=== PATIENT | female | born 1975 | race Two or more races ===

== ENCOUNTER 2024-06-20 22:50 | Emergency (ER) | payer MEDICAID, SELFPAY ==
[2024-06-20 23:29] VITALS: BP 115/76; PULSE 99; RESP 20; TEMP 36.8; O2SAT 98; BMI 32.1
[2024-06-21 00:04] LABS: MANUAL DIFF FLAG NO
[2024-06-21 00:07] LABS: Basophils Percent Auto 0.3 % (0-2); Eosinophils Absolute Auto 0.2 X10*3/uL (0.0-0.4); Hematocrit 34.5 % (37.0-47.0); Hemoglobin 11.5 g/dl (12.0-16.0); Imm Gran Abs Auto 0.02 X10*3/uL (0.00-0.03); Imm Gran Pct Auto 0.3 % (0.0-0.4); Lymphocytes Absolute Auto 2.3 X10*3/uL (1.2-4.9); Lymphocytes Percent Auto 33.2 % (20-40); Mean Corpuscular HGB Conc 33.3 g/dl (31.0-35.0); Mean Corpuscular Hemoglobin 27.2 pg (27.0-33.0); Mean Corpuscular Volume 81.6 fL (80.0-98.0); Mean Platelet Volume 8.6 fL (9.4-12.3); Monocytes Absolute Auto 0.7 X10*3/uL (0.1-1.2); Monocytes Percent Auto 10.6 % (2-11); Neutrophils Absolute Auto 3.7 x10*3/uL (2.0-8.3); Neutrophils Percent Auto 52.6 % (45-73); Platelet Count 296 X10*3/uL (160-400); Red Blood Count 4.23 X10*6/uL (4.20-5.50); Red Cell Distribution Width 13.9 % (11.0-16.0)
[2024-06-21 00:20] LABS: Alanine Aminotransferase 44 U/L (0-31); Albumin Level 4.2 g/dL (3.5-5.0); Alkaline Phosphatase 85 U/L (39-117); Anion Gap 13 (12-20); Aspartate Amino Transferase 40 U/L (5-31); Bilirubin Total 0.4 mg/dL (0.0-1.0); Blood Urea Nitrogen 14 mg/dL (9-16); Calcium 8.7 mg/dL (8.4-10.2); Carbon Dioxide 23 mmol/L (22-29); Chloride 107 mmol/L (96-108); Creatinine Clr Calc Pharmacy 93.1; Estimated Glomerular Filt Rate > 60; Glucose Random 115 mg/dL (60-115); Potassium 4.1 mmol/L (3.3-5.1); Sodium 139 mmol/L (135-145); Total Protein 7.1 g/dL (6.5-8.0)
[2024-06-21 00:44] LABS: Influenza A PCR POSITIVE (Negative); Influenza B PCR NEGATIVE (Negative); Resp Syncy Virus RNA Qual PCR NEGATIVE (Negative); SARS COV2 PCR INHOUSE NEGATIVE (Negative)
[2024-06-21 03:53] VITALS: BP 111/55; PULSE 91; RESP 18; TEMP 36.9; O2SAT 97
--- NOTE | 2024-06-21 04:16 | PC.NURSE ---
Pt a&ox4, no signs of distress. Pt reports has been bleeding for 20 days, thought it was going away but bleeding began again today and is very heavy. Pts family at bedside Plan of care ongoing.
--- OUTSIDE RECORDS SUMMARY | 2024-06-21 05:04 | XMS_ITS | Continuity of Care Document ---
Author Organization [facility] ter Address [address] [place] [id number]- Care Team Providers Care Director Of Student Financial Services Name Role Phone Not on Staff, PCP Primary Care Physician Unavail able [place] [facility] [place]31/24 - 05/31/[address] [address] Discharge Disposition: A-D/C Home Attending Physician: Mikey BRUNO [OB], Rosa Timmons Admitting Physician: Mikey BRUNO [OB]Rosa Referring Physician: Mikey BRUNO [OB]Rosa Encounter Type: One Time OP Allergies, Adverse Reactions, Alerts No Known Allergies Medications acetaminophen 325 mg oral capsule 2 capsule = 650 mg, By Mouth, Every 6 hours, PRN as needed for fever, # 90 capsule, 0 Refills, Maintenance, 05/29/24 4:02:00 AM EST, Capsule, [facility]/pharmacy #[id number], Partial fill upon patient request if the prescription is for a schedule II opioid drug. Start Date: 05/29/24 Status: Ordered Quantity: 90.0 Unit: capsule Repeat number: 1 Prenatabs Rx oral tablet 1 tablet, By Mouth, Daily, # 90 tablet, 3 Refills, Maintenance, 05/31/24 4:20:00 PM EST, Tablet, [facility][id number], Partial fill upon patient request if the prescription is for a schedule II opioid drug., 1 tablet By Mouth Daily, 74.6, kg, 05/31/24 11:36:00 EST, Dry Weight Start Date: 05/31/24 Status: Ordered Quantity: 90.0 Unit: tablet Repeat number: 4 Vital Signs Most recent to oldest [Reference Range]: 1 2 3 Oxygen Saturation [94-100 %] 99 % (05/31/24 12:22 PM) 99 % (05/31/24 11:36 AM) Pulse Rate [55-90 bpm] 73 bpm (05/31/24 11:36 AM) Blood Pressure [90-138/55-84 mm Hg] 112/51mm Hg (05/31/24 11:36 AM) Respiratory Rate [16-30 br/min] 20 br/min (05/31/24 12:22 PM) 20 br/min (05/31/24 11:40 AM) 17 br/min (05/31/24 11:36 AM) Temperature [96.8-100.4 DegF] 98.2 DegF (05/31/24 11:36 AM) Mode of Delivery (Oxygen) Room air (05/31/24 12:22 PM) Blood pressure sites Arm, right (05/31/24 11:36 AM) Temperature Route Oral (05/31/24 11:36 AM) Dry Weight 74.6 kg (05/31/24 11:36 AM) Dry Weight Obtained Via Standing scale (05/31/24 11:36 AM) Social History Social History Type Response Smoking Status Never (less than 100 in lifetime) entered on: 09/06/21 Sex Sex Representation Female (finding) Note * Benjamin Vazquez RN: PERFORM Event Display: Discharge/Transfer Note Hospital Authored Date: [id number] Nursing Discharge Note Entered On: 05/31/2024 15:31 EST Performed On: 05/31/2024 15:31 EST by Benjamin Vazquez RN Nursing Discharge Note 2 Discharge Time : 05/31/2024 15:31 EST Discharge Level of Care at Discharge : Home/Fci/Foster Care Patient Left Unit Via : Ambulatory Patient Accompanied Off Unit with : Other: self DC Instructions Provided & Signed by Pt : Yes Patient Understands D/C Instructions : Yes Patient Instructions Discharge Signed : Yes Did Pt have Specialty Bed or Wound Vac : No Benjamin Vazquez RN - 05/31/2024 15:31 EST * Benjamin Vazquez RN: PERFORM Event Display: Patient Education/Instruction Authored Date: [id number] Inpatient Adult Discharge Instructions. [address] [id number] Name: ADELAIDE AELJO : 1975?? Visit: 05/31/2024 11:29?? Current Date: 05/31/2024 14:10 ?? Account: [id number]?? Inpatient Adult Discharge Instructions We would like to thank you for allowing us to assist you with your healthcare needs. The following includes patient education materials and information regarding your injury/illness. Our entire staffstrives to provide an excellent experience for our patients and their families. PLEASE ENSURE YOU FOLLOW-UP PER THE INSTRUCTIONS BELOW! ?? YOUR OPINION IS IMPORTANT TO US! Please complete the survey you may receive by mail or email. Your feedback will be used to make improvements to the healthcare experiences of our patients and their families. Surveys are administered by [employer]. ?? If further treatment with your primary care physician or another doctor is recommended, it is important for you to keep the appointment. Call your primary care physician or return to the Emergency Department immediately if your condition worsens, fails to improve, or new symptoms develop. If you need to find a doctor, you can call [facility] [employer] Link for a referral at [phone] or toll free at [phone]) or log in to [email or web address].. ?? [facility], in keeping with [facility] guidance, no longer requires face masks for staff, patientsor visitors in most situations. Similiar to time spent indoors at other locations, there is the chance that you were exposed to repiratory viruses during your time with us (such as flu or COVID-19). If you develop symptoms concerning for a viral respiratory infection, please seek testing (and treatment if indicated) from your medical provider or home test kit. ?? You can view and manage your care through the patient portal or by using a health care delmy of your choosing. Beeline is a website that allows you to securely view your medical information including your hospital discharge summary, office visit summaries, medications and follow-up visits. You can also request appointments, renew medications, and request access to your medical information using a health care delmy of your choosing, or just ask a question. You can enroll at [email or web address] or register during your next office visit. You have been discharged from [facility], Patient Care Unit: [id number]??. If you have any questions regarding these instructions, including results of studies pending, afteryou leave, please call us and we will be happy to assist you 12/01. [facility] Your Care Team Attending Physician Mikey BRUNO [OB], Rosa Timmons?? Consulting Providers Mikey BRUNO [OB], Rosa Timmons?? Tests Performed Below is a partial list of the tests performed during your hospitalization. You may have had other tests and procedures not included in this list. Please discuss all test results with your provider. HCG Plus Beta (Females and Males) HCG Plus Beta (Females and Males)?? Primary Care Provider Not on Staff, PCP?? Advance Directive Health Care Proxy on File No Discharge Vitals Temperature: 98.2 DegF Pulse Rate: 73 bpm Respiratory Rate: 20 br/min Systolic Blood Pressure: 112 mm Hg Diastolic Blood Pressure:??51 mm Hg??Low Oxygen Saturation: 99 % Studies Pending All studies ordered during this hospital stay have been completed unless listed below. Please discuss all pending results with your provider listed above in these instructions. ?? No incomplete studies found?? What to do next Instructions From Your Doctor ?? Orders?? You Need to Schedule the Following Appointments Follow Up with??Peggy Flaherty DO Why: Please keep all scheduled appt??with your [facility] Provider and continue with blood draws (HCG Levels) as discussed. Imani call with any additional questions or concerns. Where: [address] [place] [address] [place] [address]- Discharge Medications ADELAIDE ALEJO :1975 Visit Date:05/31/2024 Medications: Please continue your medications until treatment is completed or stopped by your provider. Medications not listed below should be discontinued. Discuss any questions related to medications with your provider. What How Much When Instructions Next Dose Unchanged Acetaminophen (acetaminophen 325 mg oral capsule) 2 capsule Oral Every 6 hours as needed for as needed for fever Prescription Given During Visit No new medications prescribed at time of discharge.?? Laboratory Results Below is a partial list of the most recent Laboratory test results done prior to this discharge. You may have had other tests and procedures not included in this list. Please discuss all test resultswith your provider. HCG Plus Beta (Females and Males) (05/31/2024) ? ?BHCG (HCG & Beta) - 492 mIU/mL You will be contacted within 72 hours with your results. Allergies (NKA means No Known Allergies) NKA Problems No qualifying data available Education Materials Below is the list of Educational Leaflet Providered with your Discharge Instructions. WebMD Ignite Patient Education - HCG (Blood)?? WebMD Ignite Patient Education - HCG (Blood)?? WebMD Ignite Patient Education - Discharge Instructions for Miscarriage?? WebMD Ignite Patient Education - Possible Miscarriage (Threatened )?? Valuables and Belongings I fully understand and agree that [facility] accepts no responsibility for all my personal property including clothing, toilet articles, radios, jewelry, dentures, hearing aids, rings, money, or any other property that is in my possession or is brought to me after admission. I understand certain valuables may be placed in a hospital safe for a short period of time. I understand that the hospital is not liable for loss or damage due to accident, fire, or other natural occurrence while said property is in the safe. I accept full responsibility for any personal property that I keep with me, and will not hold the hospital responsible in case of loss or disappearance. I acknowledge that i have been encouraged to send valuables and belongings home. ? Other Discharge Information ? Pulmonary Rehab Status?? Pulmonary Rehab Discharge Status?? Respiratory Rate: 20 br/min ? Common Emergency Awareness Tips IS IT A STROKE? Act FAST and Check for these signs: FACE Does the face look uneven? ARM Does one arm drift down? SPEECH Does their speech sound strange? TIME Call at any sign of stroke ?? Heart Attack Signs Chest discomfort: Most heart attacks involve discomfort in the center of the chest and lasts more than a few minutes, or goes away and comes back. It can feel like uncomfortable pressure, squeezing, fullness or pain. Discomfort in upper body: Symptoms can include pain or discomfort in one or both arms, back, neck, jaw or stomach. Shortness of breath: With or without discomfort. Other signs: Breaking out in a cold sweat, nausea, or lightheaded. Remember, MINUTES DO MATTER. If you experience any of these heart attack warning signs, call to get immediate medical attention! ?? Smoking can increase your chances of developing chronic health problems and can cause harmful effects to other family members in your house. If you smoke, you are strongly encouraged to quit. Please call [facility] Link at [phone] or [phone] ([phone]) or log in to [email or web address] for referrals to smoking cessation programs. ?? 275 Suicide & Crisis Lifeline is available 12/01 if you or someone you know needs to find a reason to keep living. By calling 648 you'll be connected to a skilled, trained counselor at a crisis center in your area. INPATIENT DISCHARGE INSTRUCTIONS SIGNATURE PAGE ADELAIDE ALEJO Location:[facility] Registration Date and Time:05/31/2024 11:29 EST Primary Care Physician: Not on Staff, PCP Attending Physician: Mikey BRUNO [OB], Rosa Timmons, I ADELAIDE ALEJO, have received the above patient education materials/instructions and have verbalized understanding. If ambulance or transport services are being used I further acknowledge being given a choice of service. ?? If you need to contact me, please call me at this number: . Patient/Blending Machine Feeder Name: Patient/Blending Machine Feeder Signature: Relationship to Patient: Witness Name/Signature: Date: * Benjamin Vazquez RN: PERFORM Event Display: Patient Education Leaflets Authored Date: [id number] Ectopic ?? [id number] Embarazo ect??shine Cuando stephania tomas queda embarazada, el ??vulo fecundado (??vulo) se implanta en el interior del ??tero (matriz), donde crece. Melissa, en algunos casos, el ??vulo puede implantarse fuera del ??tero, con mayor frecuencia en la trompa de Falopio. Exeter se llama embarazo ect??shine. Tambi??n es conocido chinmay embarazo tub??rico. Melissa el ??vulo tambi??n puede implantarse en otros lugares, chinmay, por ejemplo,en el ovario, el payton uterino o el vientre (abdomen). Un embarazo ect??shine en estos sitios es poco frecuente. Doni el embarazo, el ??vulo fecundado crece en el ??tero. Melissa en un embarazo ect??shine, el ??vulo que crece en la trompa de Falopio puede hacer que la trompa estalle (se rompa). Exeter puede provocar un sangrado grave si no se detecta temprano y no se trata. ??Cu??les son las causas del embarazo ect??shine? En general, hay un problema con la trompa de Falopio que impide el paso del ??vulo hacia el ??tero.Exeter podr??a deberse a stephania lesi??n en el tubo, chinmay stephania infecci??n o cirug??a. Las posibilidades deuna tomas de tener un embarazo ect??shine pueden aumentar si baxter tenido: ??? un embarazo ect??shine en el pasado; ??? infecciones p??lvicas recurrentes; ??? endometriosis; ??? problemas para quedar embarazada (infertilidad); ??? cirug??a de las trompas; ??? un embarazo doni el uso de algunas p??ldoras anticonceptivas o un dispositivo intrauterino (DIU). Stephania tomas tambi??n puede tener un riesgo mayor si: ??? fuma; ??? tiene m??s de 35??a??os; ??? utiliza espr??is vaginales regularmente. ?Cu??les son los s??ntomas de un embarazo ect??shine? Los s??ntomas de un embarazo ect??shine ocurren con mayor frecuencia doni las primeras 12??semanas de embarazo (primer trimestre). Stephania tomas puede tener s??ntomas de embarazo temprano, chinmay un per??odo menstrual perdido. Veronica senos pueden estar sensibles. Es posible que orine con frecuencia y que sienta malestar estomacal (n??useas). Melissa, en algunos casos, puede no tener joe??n s??ntoma. Si stephania tomas tiene s??ntomas, es com??n el sangrado de la vagina al principio del embarazo. Tambi??n puede sentir dolor en la pelvis o la parte baja de la espalda. El dolor puede aparecer r??pida o lentamente, y puede ser leve o intenso. Puede ser sordo o khris, y puede ir y venir o durar un tiempo. A medida que un embarazo ect??shine avanza, los s??ntomas pueden aumentar. Si la trompa estalla, unamujer puede tener: ??? dolor intenso y repentino en el abdomen o la pelvis que no desaparece; ??? dolor que va hasta el hombro; ??? debilidad o desmayos. Si la trompa estalla debido al embarazo ect??shine, puede provocar stephania hemorragia interna grave que puede suponer stephania amenaza para la baron de la tomas. Se necesita un tratamiento inmediato. ?Cu??l es el tratamiento para un embarazo ect??shine? Un embarazo ect??shine puede tratarse de varias maneras. El tratamiento puede incluir lo siguiente: ??? Medicamentos. Se puede aplicar la inyecci??n de stephania o m??s dosis de medicamento para detener elcrecimiento de los ??vulos fecundados. As??, el cuerpo absorbe estas c??lulas. Los niveles hormonales tambi??n se analizan en momentos espec??ficos. Esta prueba se utiliza para asegurarse de que los niveles hormonales hayan vuelto a la normalidad. ??? Cirug??a. Se realiza stephania cirug??a para extirparla parte de la trompa donde se encuentra el embarazo ect??shine o toda la trompa. ??? Espera en observaci??n. Emelina tratamiento se utiliza solo para un ashley radha??o de mujeres con un riesgo muy bajo de ruptura. Consiste en un control minucioso de los s??ntomas, pruebas de nivel hormonal y ecograf??as para controlar el estado de daija de la tomas. Si stephania tomas muestra signos de que el embarazo ect??shine podr??a estallar o tiene signos de que la trompa baxter estallado, se realiza stephania cirug??a inmediatamente. ? [id number] [employer]omin[employer]. All rights reserved. This information is not intended as a substitute for professional medical care. Always follow your healthcare professional's instructions. ?? * George TALAVERA, Benjamin: PERFORM Event Display: Patient Education Leaflets Authored Date: [id number] Ectopic ?? [id number] Embarazo ect??shine Cuando stephania tomas queda embarazada, el ??vulo fecundado (??vulo) se implanta en el interior del ??tero (matriz), donde crece. Melissa, en algunos casos, el ??vulo puede implantarse fuera del ??tero, con mayor frecuencia en la trompa de Falopio. Exeter se llama embarazo ect??shine. Tambi??n es conocido chinmay embarazo tub??rico. Melissa el ??vulo tambi??n puede implantarse en otros lugares, chinmay, por ejemplo,en el ovario, el payton uterino o el vientre (abdomen). Un embarazo ect??shine en estos sitios es poco frecuente. Doni el embarazo, el ??vulo fecundado crece en el ??tero. Melissa en un embarazo ect??shine, el ??vulo que crece en la trompa de Falopio puede hacer que la trompa estalle (se rompa). Exeter puede provocar un sangrado grave si no se detecta temprano y no se trata. ??Cu??les son las causas del embarazo ect??shine? En general, hay un problema con la trompa de Falopio que impide el paso del ??vulo hacia el ??tero.Exeter podr??a deberse a stephania lesi??n en el tubo, chinmay stephania infecci??n o cirug??a. Las posibilidades deuna tomas de tener un embarazo ect??shine pueden aumentar si baxter tenido: ??? un embarazo ect??shine en el pasado; ??? infecciones p??lvicas recurrentes; ??? endometriosis; ??? problemas para quedar embarazada (infertilidad); ??? cirug??a de las trompas; ??? un embarazo doni el uso de algunas p??ldoras anticonceptivas o un dispositivo intrauterino (DIU). Stephania tomas tambi??n puede tener un riesgo mayor si: ??? fuma; ??? tiene m??s de 35??a??os; ??? utiliza espr??is vaginales regularmente. ?Cu??les son los s??ntomas de un embarazo ect??shine? Los s??ntomas de un embarazo ect??shine ocurren con mayor frecuencia doni las primeras 12??semanas de embarazo (primer trimestre). Stephania tomas puede tener s??ntomas de embarazo temprano, chinmay un per??odo menstrual perdido. Veronica senos pueden estar sensibles. Es posible que orine con frecuencia y que sienta malestar estomacal (n??useas). Melissa, en algunos casos, puede no tener joe??n s??ntoma. Si stephania tomas tiene s??ntomas, es com??n el sangrado de la vagina al principio del embarazo. Tambi??n puede sentir dolor en la pelvis o la parte baja de la espalda. El dolor puede aparecer r??pida o lentamente, y puede ser leve o intenso. Puede ser sordo o khris, y puede ir y venir o durar un tiempo. A medida que un embarazo ect??shine avanza, los s??ntomas pueden aumentar. Si la trompa estalla, unamujer puede tener: ??? dolor intenso y repentino en el abdomen o la pelvis que no desaparece; ??? dolor que va hasta el hombro; ??? debilidad o desmayos. Si la trompa estalla debido al embarazo ect??shine, puede provocar stephania hemorragia interna grave que puede suponer stephania amenaza para la baron de la tomas. Se necesita un tratamiento inmediato. ?Cu??l es el tratamiento para un embarazo ect??shine? Un embarazo ect??shine puede tratarse de varias maneras. El tratamiento puede incluir lo siguiente: ??? Medicamentos. Se puede aplicar la inyecci??n de stephania o m??s dosis de medicamento para detener elcrecimiento de los ??vulos fecundados. As??, el cuerpo absorbe estas c??lulas. Los niveles hormonales tambi??n se analizan en momentos espec??ficos. Esta prueba se utiliza para asegurarse de que los niveles hormonales hayan vuelto a la normalidad. ??? Cirug??a. Se realiza stephania cirug??a para extirparla parte de la trompa donde se encuentra el embarazo ect??shine o toda la trompa. ??? Espera en observaci??n. Emelina tratamiento se utiliza solo para un ashley radha??o de mujeres con un riesgo muy bajo de ruptura. Consiste en un control minucioso de los s??ntomas, pruebas de nivel hormonal y ecograf??as para controlar el estado de daija de la tomas. Si stephania tomas muestra signos de que el embarazo ect??shine podr??a estallar o tiene signos de que la trompa baxter estallado, se realiza stephania cirug??a inmediatamente. ? [id number] [employer]omin[employer]. All rights reserved. This information is not intended as a substitute for professional medical care. Always follow your healthcare professional's instructions. ?? * George TALAVERA, Benjamin: PERFORM Event Display: Patient Education Leaflets Authored Date: [id number] HCG (Blood) ?? hcg_serum_ES HCG (en sd) ??Esta prueba tiene otros nombres? Prueba de la hormona gonadotropina cori??amrita humana, prueba de embarazo en leonel, HCG cuantitativa ?De qu?? se trata esta prueba? La gonadotropina cori??amrita humana (HCG, por houston sigla en ingl??s) es un tipo de hormona. Esta prueba es un an??lisis que se utiliza para medir la cantidad de HCG que hay en la sd. Tanto los hombres chinmay las mujeres tienen radha??as cantidades de HCG en el cuerpo en todo momento.Cuando stephania tomas est?? embarazada, el cuerpo produce lucille m??s cantidad de HCG de lo normal. En unembarazo saludable, la cantidad de HCG en la sd aumenta mucho doni los primeros 3??meses. Esta prueba es el criterio de referencia para determinar si stephania tomas est?? embarazada. Permite detectar que est?? embarazada antes de que se pueda detectar un feto en stephania prueba de diagn??stico por im??genes, chinmay stephania ecograf??a. Con stephania ecograf??a se puede observar que est?? embarazada cuando la HCG aumenta a 1,000??UI/l o m??s. ?Por qu?? samuel hacerme esta prueba? Es posible que el proveedor de atenci??n m??dica se la recomiende para saber si est?? embarazada. Tambi??n es posible que se la pida si tiene sangrado vaginal o c??licos. Estos s??ntomas podr??an serindicio de un embarazo ect??shine o de que podr??a perder a houston beb?? por nacer. Tambi??n es posible que el proveedor de atenci??n m??dica quiera saber c??mo progresa houston embarazo doni algunos d??as, por lo que es posible que le pida que se major esta prueba 2??veces o m??s, con varios d??as de diferencia. ?Qu?? otras pruebas podr??an hacerme junto con esta? Si est?? embarazada, es probable que el proveedor de atenci??n m??dica tambi??n le pida stephania ecograf??a para evaluar la presencia de determinados problemas. Tambi??n es posible que se analice la sd para detectar la presencia de otras dos hormonas, el estradiol y la progesterona. Al analizar los niveles de estradiol, stephania forma de estr??johnson, se puede saber qu?? garcia faith est?? funcionando la placenta. El proveedor de atenci??n m??dica puede observar los niveles de progesterona, que tambi??n aumentan doni el embarazo, para descubrir si tiene riesgo de tener un aborto espont??domitila o un embarazo ect??shine. ?Qu?? significan los resultados de la prueba? Los resultados de la prueba pueden variar seg??n la edad, el g??breanne y la historia cl??amrita, entre otros factores. Los resultados pueden ser diferentes seg??n el laboratorio donde se major la prueba. Es posible que no signifiquen que tiene un problema. Para saber qu?? significan, hable con el proveedor de atenci??n m??dica. Los niveles normales de HCG en los hombres y en las mujeres premenop??usicas mariel??an entre 0.02 y 0.8??UI/l. En las primeras etapas del embarazo, los niveles de HCG pueden duplicarse en pocos d??as yalcanzar houston punto m??ximo, aproximadamente, a las 10??semanas. Despu??s de eso, los niveles pueden m antenerse estables o empezar a disminuir. Los niveles normales de HCG doni el embarazo pueden variar entre 20,000 y 200,000??UI/l. En ocasiones, la medici??n de los cambios en los niveles de HCG con el tiempo puede proporcionar informaci??n ??til. Si los niveles de HCG no cambian de acuerdo a lo esperado, es posible que esto signifique que podr??a giancarlo perdido el embarazo. ?C??mo se hace esta prueba? Para la prueba, se requiere stephania muestra de sd. Se utiliza stephania aguja para extraer sd de stephania vena del brazo o de la mano. ?Esta prueba implica alg??n riesgo? Narendra stephania muestra de sd con stephania aguja tiene ciertos riesgos. Estos incluyen sangrado, infecci??n, moretones o sensaci??n de mareo. Cuando le pinchen el brazo o la mano con la aguja, es posible que tenga stephania leve sensaci??n de escozor o dolor. Despu??s, la diane puede estar adolorida. ?Qu?? factores podr??an afectar los resultados de la prueba? Esta prueba es bastante confiable, melissa algunos factores pueden causar un positivo falso, por ejemplo los siguientes: ??? Determinados tumores que producen HCG ??? Medicamentos que contienen HCG, chinmay algunos que se usan en los tratamientos de fertilidad ??? La p??rdida reciente de un embarazo, porque los niveles de HCG pueden tardar 60??d??as en volver a la normalidad ?C??mo me preparo para esta prueba? No necesita prepararse para esta prueba. Aseg??rese de que el proveedor de atenci??n m??dica conozca todos los medicamentos, los medicamentos a base de hierbas, las vitaminas y los suplementos que usa. Estos incluyen los medicamentos que no necesitan receta y cualquier droga ilegal que pudiera estar consumiendo. ?? Last Reviewed Date: 2022 ?? [id number] The [employer]. Todos los derechos reservados. Esta informaci??n no pretende sustituir la atenci??n m??dica profesional. S??lo [place] m??dico puede diagnosticar y tratar un problema de daija. ?? Patient Care team information Care Team Personnel Name: Not on Staff, PCP Position: S Physician (General Medicine) Member Role: PCP Name: O'Mcwilliams RN, Jacolyn Position: [facility] OB RN Member Role: Patient Care Provider Care Team Related Persons Name: MALENA MARTINEZ Insurance Providers Guarantor name: MERRITT Health Plan Information #: 1 Payer: [employer] Member Number: [id number] Policy Number: NA Group Number: [id number] Health Plan Information #: 2 Payer: [employer] Member Number: [id number] Policy Number: NA Group Number: [id number]
--- OUTSIDE RECORDS SUMMARY | 2024-06-21 05:04 | XMS_ITS ---
Author Organization [facility] Address [address], [place] [id number] Care Team Providers Care El Teacher Name Role Phone No, PCP Primary Care Provider [facility] Unavailable [phone] Harshil Palmer Unavailable [phone] Results Component Value Reference Range Notes CBC Reviewed date:12/28/2023 10:39:40 AM Interpretation:Normal Performing Lab: Notes/Report: Original Ordering Provider: HARSHIL PALMER APRN Tamion, a member of [facility] [address] [place] [address] Cns - Gabby Jara MD WBC 8.9 4.8-10.8 x10-3/uL RBC 4.3 3.8-4.8 x10-6/uL HEMOGLOBIN 11.8 11.5-16.0 g/dL HEMATOCRIT 37.3 35-47 % MCV 86.9 79-98 fL MCH 27.5 27-32 pg MCHC 31.6 32-37 g/dL RDW 13.9 11-15 % PLT COUNT 395 130-400 x10-3/uL MEAN PLATELET VOLUME 9.2 7-11 fL NRBC % AUTO 0.0 <1 % NRBC # AUTO 0.00 <0.1 x10-3/uL COMPREHENSIVE METABOLIC PANE L Reviewed date:12/28/2023 10:39:31 AM Interpretation:Normal Performing Lab: Notes/Report: Original Ordering Provider: HARSHIL PALMER APRN GLUCOSE 95 70-100 mg/dL Reference range applicable to fasting specimens only BUN 11 5-25 mg/dL CREAT 0.51 0.5-1.1 mg/dL GLOMERULAR FILTRATION RATE 117 >60 This eGFR result was calculated using the CKD-EPI 2020 Creatinine Equation SODIUM 140 135-145 mEq/L POTASSIUM 4.4 3.5-5.5 mmol/L CHLORIDE 111 96-110 mmol/L CO2 26 21-32 mmol/L ANION GAP 3 3-11 CALCIUM 9.1 8.5-10.5 mg/dL TOTAL PROTEIN 7.1 6.0-8.0 G/dL ALBUMIN 3.9 3.2-5.0 G/dL BILI,TOTAL 0.5 0.0-1.4 mg/dL SGOT 28 10-42 U/L SGPT 40 10-60 U/L ALK PHOS 92 42-121 U/L GLYCOHEMOGLOBIN PROFILE Reviewed date:12/28/2023 10:39:19 AM Interpretation:Normal Performing Lab: Notes/Report: Original Ordering Provider: HARSHIL PALMER ASSISTANT PROFESSOR SURGICAL TECHNOLOGY [employer] [address] Cns - Gabby Jara MD GLYCATED HEMOGLOBIN A1C 5.3 <6.5 % ESTIMATED AVERAGE GLUCOSE 105 LIPID PROFILE Reviewed date:12/28/2023 11:34:46 AM Interpretation:Abnormal Performing Lab: Notes/Report: CHOLESTEROL 185 0-200 mg/dL TRIGLYCERIDES 166 0-150 mg/dL HDL CHOLESTEROL 55 >40 mg/dL LDL CALCULATED 97 0-100 mg/dL TC-HDLC RATIO 3.4 0-4.4 mg/dL MEASLES PROFILE Reviewed date:11/12/2023 10:51:16 AM Interpretation:Normal Performing Lab: Notes/Report: Original Ordering Provider: HARSHIL PALMER [employer], [place] [address] Cns - Gabby Jara MD MEASLES IGG QUAL POSITIVE POSITIVE MEASLES IGG QUANT 106.0 >=16.5 AU/mL >=16.5 AU/ mL is considered to be consistent with Immunity. TREPONEMAL AB Reviewed date:12/28/2023 10:39:59 AM Interpretation:Negative Performing Lab: Notes/Report: TREPONEMAL AB NEGATIVE NEGATIVE TSH CASCADE Reviewed date:12/28/2023 10:39:50 AM Interpretation:Normal Performing Lab: Notes/Report: TSH CASCADE 2.20 0.40-4.00 uIU/ml URINALYSIS Reviewed date:12/28/2023 10:33:33 PM Interpretation:Abnormal Performing Lab: Notes/Report: Original Ordering Provider: HARSHIL PALMER APRN Tamion, a member of [address] [address] Cns - Gabby Jara MD GLUCOSE, (UA) NEGATIVE NEGATIVE mg/dL BILIRUBIN, URINE NEGATIVE NEGATIVE KETONE, URINE NEGATIVE NEGATIVE mg/dL SPECIFIC GRAVITY, URINE 1.010 1.003-1.030 BLOOD, URINE TRACE NEGATIVE PH, URINE 7.5 5.0-8.0 PROTEIN, URINE NEGATIVE <= TRACE mg/dl UROBILINOGEN, URINE 0.2 0.2-1.0 E.U./dL NITRITE, URINE NEGATIVE NEGATIVE LEUKOCYTE ESTERASE, URINE NEGATIVE NEGATIVE RBC, URINE 5 0-4 /HPF WBC, URINE 2 0-4 /HPF EPITH CELLS, URINE 24 0-60 /LPF BACTERIA, URINE HEAVY NEGATIVE QUANTIFERON(R)-TB GOLD PLUS, 1 TUBE Reviewed date:11/13/2023 09:12:41 AM Interpretation:Negative Performing Lab:NL2, [facility] [id number] Rohan Hall Notes/Report: NON-FASTING QUANTIFERON(R)-TB GOLD PLUS, 1 TUBE NEGATIVE NEGATIVE Negative test result. M. tuberculosis complex infection unlikely. NIL 1.34 MITOGEN-NIL >10.00 TB1-NIL <0.00 TB2-NIL <0.00 The Nil tube value reflects the background interferon gamma immune response of the patient's blood sample. This value has been subtracted from the patient's displayed TB and Mitogen results. Lower than expected results with the Mitogen tube prevent false-negative Quantiferon readings by detecting a patient with a potential immune suppressive condition and/or suboptimal pre-analytical specimen handling. The TB1 Antigen tube is coated with the M. tuberculosis-specific antigens designed to elicit responses from TB antigen primed CD4+ helper T-lymphocytes. The TB2 Antigen tube is coated with the M. tuberculosis-specific antigens designed to elicit responses from TB antigen primed CD4+ helper and CD8+ cytotoxic T-lymphocytes. For additional information, please refer to https://education.Vow To Be Chic/faq/JYF702 (This link is being provided for informational/ educational purposes only.) Reason For Referral Reason evaluate for rig ht eye blurred vision Patient has Limed [facility], ? Dr. Bergeron doing pro renny Diagnosis 1 Visual discomfort, r ight eye (H53.141) Referral Organization [facility] Referring Provider First Name Harshil Referring Provider Last Name Esperanza Referring Provider Speciality Nurse Prac titioner Referred Provider Scottie Bergeron [facility] Notes limited insurance. P lease check for any provider who can see her pro oseas. Her right eye is blurry, probably cataract, Josselyn Gonzalez 11/12/2023 10:48:45 AM >Faxed to [facility] 12/10/2023 11:01:22 AM >They do not do pro oseas Referral Priority Routine REASON FOR VISIT Office: CPE,establish care Social History Tobacco Use: Social History Observation Description Date Details (start date - stop date) Never Smoker NA - NA Tobacco Use Assessment MU Question Answer Notes What is your current smoking status? nonsmoker Problems Problem Type SNOMED Code ICD Code Onset Dates Problem Status W/U Status Risk Notes Problem Obese class II (16930789294 4105) Body mass index [BMI] 35.0-35.9, adult (Z68.35) Active confirmed Problem Obesity (264856053) Obesity, unspecified (E66.9) Active confirmed Vital Signs Temperature 98.3 degrees Fahrenheit 11/10/19 24 Height 58 in 11/10/2023 Weight 168.4 lbs 11/10/2023 BMI 35.19 kg/m2 11/10/2023 Oximetry 98 11/10/2023 Blood pressure systolic 120 11/10/19 24 Blood pressure diastolic 46 024 Encounters Encounter Location Date Provider Diagnosis [address] [id number] 11/10/2023 Harshil Palmer Encounter for screening for cardiovascular disorders Z13.6 ; Encounter for general adult medical examination with abnormal findings Z00.01 ; Encounter for screening for respiratory tuberculosis Z11.1 ; Encounter for screening for infectious and parasitic diseases, unspecified Z11.9 ; Encounter for screening for malignant neoplasm of colon Z12.11 ; Body mass index [BMI] 35.0-35.9, adult Z68.35 ; Obesity, unspecified E66.9 and Visual discomfort, right eye H53.141 Assessments Encounter Date Diagnosis (ICD Code) Assessment Notes Treat ment Notes Treatment Clinical Notes 11/10/2023 Encounter for screening for cardiovascular disorders (ICD-10 - Z13.6) + CV risk factors: +obesity 11/10/2023 Encounter for general adult medical examination with abnormal findings (ICD-10 - Z00.01) Annual PE performed.General recommendation for good health made: brush/floss your teeth 2x per day. Eat a healthy diet and obtain 30 minutes of aerobic exercise 5/7 days per week.. Maintain high in take of water and avoid soda and energy drinks. Get 8 hours of sleep every night. 11/10/2023 Encounter for screening for respiratory tuberculosis (ICD-10 - Z11.1) TB testing is completed on patients every 6 months with housing instability and those using substances. Quantiferon gold will be drawn. 11/10/2023 Encounter for screening for infectious and parasitic diseases, unspecified (ICD-10 - Z11.9) 11/10/2023 Encounter for screening for malignant neoplasm of colon (ICD-10 - Z12.11) Insure FIT testing agreed upon to screen for occult blood from colorectal disease. Instructed in use. Patient collection kit labeled and given to patient; questions regarding how to collect samples answered. Reminded to place date on each sample and mail back the card with completed requisition. 11/10/2023 Body mass index [BMI] 35.0-35.9, adult (ICD-10 - Z68.35) Engaged discussion on maintaining healthy lifestyle: healthy diet low on fats and simple carbohydrates, and regular physical exercise of at least 30 minutes daily 11/10/2023 Obesity, unspecified (ICD-10 - E66.9) Engaged discussion on maintaining healthy lifestyle: healthy diet low on fats and simple carbohydrates, and regular physical exercise of at least 30 minutes daily 11/10/2023 Visual discomfort, right eye (ICD-10 - H53.141) we will attempt to find a provider who will accept her limited insurance 11/10/2023 Other Plan Of Treatment Treatment Notes Assessment Notes Encounter for screening for cardiovascular disorders + CV risk factors: +obesity Encounter for general adult medical examination with abnormal findings Annual PE performed.General recommendati on for good health made: brush/floss your teeth 2x per day. Eat a healthy diet and obtain 30 minutes of aerobic exercise 5/7 days per week.. Maintain high in take of water and avoid soda and energy drinks. Get 8 hours of sleep every night. Encounter for screening for respiratory tuberculosis TB testing is completed on patients every 6 months with housing instability and those using substances. Quantiferon gold will be drawn. Encounter for screening for malignant neoplasm of colon Insure FIT testing agreed upon to screen for occult blood from colorectal disease. Instructed in use. Patient collection kit labeled and given to patient; questions regarding how to collect samples answered. Reminded to place date on each sample and mail back the card with completed requisition. Body mass index [BMI] 35.0-35.9, adult E ngaged discussion on maintaining healthy lifestyle: healthy diet low on fats and simple carbohydrates, and regular physical exercise of at least 30 minutes daily Obesity, unspecified Engaged discussion on maintaining healthy lifestyle: healthy diet low on fats and simple carbohydrates, and regular physical exercise of at least 30 minutes daily Visual discomfort, right eye we will att empt to find a provider who will accept her limited insurance Pending Test Test Name Order Date FECAL GLOBIN BY IMMUNOCHEM. (MEDICARE) 0 11/10/2023 CHLAMYDIA / GC DNA W RFLX 11/10/2023 HEPATITIS A,B,C PROFILE 11/10/2023 Referrals Referral Date Details 11/11/2023 11/11/2023, eval uate for right eye blurred vision Patient has Limed [facility] [employer], ? Dr. Bergeron doing pro renny Scottie Next Appt Details Follow Up: 2-3 weeks, Reason : lab f/u Progress Notes * irving CANDELARIODOB: [birth year] (48 yo F)Acc No.[id number]:11/10/2023 Progress Notes Patient:?irving candelario Provider:?BENNY Mcconnell :1975???Age:48 Y???Sex:Female D ate:11/10/2023 Address:[address] [place] [address] Pcp:PCP No Subjective: * Chief Complaints: * ???Office: CPE,establish car e * HPI: ???General:? Symptom Screen: ?- Fever in the last 1 week? Patient denies ?- New or worsening cough in the last 1 week? Patient denies. ?- Contact will known COVID exposure in last 5 days? Patient denies ?-new rash within last 3 weeks? Patient denies ?RN/MA:AR: Lump on side of left side of head and dizziness ?- Have you received the COVID-19 vaccine? Yes ?- Have you received COVID-19 booster? Yes ?- Have you been tested positive for COVID -19 in the last 7 days? If so where and why? No. ? 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 ?- She is concern with her weakened right eye vision. Reports difficulty seeing far and with ?-She lives with her and a son in an apartment ?-She works part-time at [employer] ?-Reports no mental health issue ?-denies present and past use of substance, alcohol and cigarette ?-Reports going to [facility] and had PAP and Mammo 07/2023 ?-LMP -10/05/23 ?-Colon CA screening - agrees to do FIT ?-Eye-cannot see far; hard time night driving ?-dental - full denture. * ROS:?No acute C/P no acute SOB, No problem with urine, No heartburn or abdominal pain. Endorses being able to climb one fight of stairs without stopping due to SOB, Mood: stable, appetite: good, sleeping well. Denies new skin rashes. * Medical History:? * Surgical History:? * Hospitalization/Major Diagno stic Procedure:? * Social History:?Housing/living arrangements: 09/2023 Rent own apartment with and son. ???SDoH Screening?Entered Date?10/05/2023 ?How is this screening being conducted today??By phone ?What is your housing situation today??I have housing today, but I am worried about losing housing in the future ?Think about the place you live. Do you have problems with any of the following? (Check all that apply)?None of the above ?Within the past 12 months, you worried that your food would run out before you got money to buy more?Never true ?Within the past 12 months, the food you bought just didn't last and you didn't have enough money to get more?Never true ?In the past 12 months, has lack of transportation kept you from medical appointments, meetings, work or from getting things needed for daily living? (Check all that apply)?No ?In the past 12 months has the [employer], gas, oil, or water [employer] threatened to shut off services in your home??No ?Do you want help finding or keeping work or a job??I do not need or want help ???Tobacco Use Assessment MU?Annual Tobacco assessment completed?10/05/2023 ?Tobacco assessment completed?10/05/2023 ?What is your current smoking status??nonsmoker ???Drug use?Date of history:?10/05/2023 Denies ???Opiate Use Hx?Ever taken opiates?No 09/2023 ???Alcohol Use: 09/2023 Denies. ???Sexual Orientation?Heterosexual?10/05/2023 Identifies as Heterosexual ???Sexual Health history?Sexual History completed on:?10/05/2023 ?Identifies as currently having sexual contact?Yes ?Identifies sexual preference as?Men ?Number of sexual partners in the last year?1 ?If one partner in the last year, length of relationship?greater than one year ?Number of lifetime sexual partners?one ???Mental Health: 09/2023 Declined have MH services. 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 ???Income: 09/2023 , working. ???Legal issues/Incarcerations: 09/2023 Denies. ???PCP/last visit: 09/2023 , Has not received PCP care in several years. ???Transportation: 09/2023 , Pt has access to vehicle. ???Marital Status: 09/2023 , . ???Next of Kin/Emerg. Contact & Community Supports: 09/2023, Emergency contact see info section. ???Childhood experience?In fostercare/DYS for a portion of childhood?No ?Victim of physical abuse?No ?Victim of sexual abuse?No ?Adults at home using drugs/drinking excessivly?No ?Witness to violence/DV in childhood?No ???Evangelical: 09/2023, Confucianism. ???TBI screening/Head injury Hx: 09/2023 Denies. ???Social hx: 09/2023, Born in [place], Grew up in: [facility] , Lived with: mother, father, siblings growing up. * Medications:?None Objective: * Vitals:?BP Generic: 120/46, Ht: 58, Wt: 168.4, BMI:35.19, HR: 65, Oxygen sat %: 98, Temp: 98.3. * Examination: ???General Examination: ?General Appearance?Well-appearing, NAD, No obvious signs of illness, Chicken Hatchery Helper acts as microstrategy architect during visit for Moldovan speaking patient.?MENTAL HEALTH?Easy to engage, engaged in OV concern today, good eye contact.?HEAD:?Atraumatic.?EYES:?Right - no red eye reflex, slightly opaque.?EARS:?TM visualized bilaterally.?NOSE:?turbinates normal in appearance.?ORAL CAVITY:?edentulous; full dentures.?NECK:?supple, no JVD, no carotid bruit.?PHARYNX?Normal without erythema or exudate.?HEART:?normal S1 S2, no murmurs,clicks, rubs or gallops.?CHEST:?normal shape and expansion.?LUNGS:?clear to auscultation bilaterally with good excursion.?ABDOMEN:?soft, non-tender, no distention, no hepatomegaly or splenomegaly appreciated.?NEUROLOGIC EXAM:?alert and oriented x 3.?SKIN:?no observed rash, lesions, cyanosis.?EXTREMITIES:?no LE edema.?BACK:?full range of motion of the lumbar spine, full range of motion of the cervical spine.?Musculoskeletal?three minute musculoskeletal exam WNL.?LYMPH NODES:?no enlargement of preauricular, post auricular, occipital, cervical/supraclav/axillary nodes.? Assessment: * Assessment: 1.?Encounter for general dl lt medical examination with abnormal findings - Z00.01 (Primary)?2.?Encounter for screening for cardiovascular disorders - Z13.6?3.?Encounter for screening for respiratory tuberculosis - Z11.1?4.?Encounter for screening for infectious and parasitic diseases, unspecified - Z11.9?5.?Encounter for screening for malignant neoplasm of colon - Z12.11?6.?Body mass index [BMI] 35.0-35.9, adult - Z68.35?7.?Obesity, unspecified - E66.9?8.?Visual discomfort, right eye - H53.141? Plan: * Treatment: 2.?Encounter for screening f or cardiovascular disorders?LAB: CBC (Collection Date & Time - 11/10/2023 11:17 AM) ?LAB: COMPREHENSIVE METABOLIC PANEL (Collection Date & Time - 11/10/2023 11:17 AM) ?LAB: URINALYSIS (Collection Date & Time - 11/10/2023 11:17 AM) Notes:+ CV risk factors: +obesity.?? 3.?Encounter for screening f or respiratory tuberculosis?LAB: QUANTIFERON(R)-TB GOLD PLUS, 1 TUBE (Collection Date & Time - 11/10/2023 11:17 AM) Notes:TB testing is completed on patients every 6 months with housing instability and those using substances. Quantiferon gold will be drawn. .?? 4.?Encounter for screening f or infectious and parasitic diseases, unspecified?LAB: CHLAMYDIA / GC DNA W RFLX (Collection Date & Time - 11/10/2023 11:17 AM) ?LAB: MEASLES PROFILE (Collection Date & Time - 11/10/2023 11:17 AM) ?LAB: TREPONEMAL AB (Collection Date & Time - 11/10/2023 11:17 AM) ?LAB: HEPATITIS A,B,C PROFILE (Collection Date & Time - 11/10/2023 11:17 AM) 5.?Encounter for screening f or malignant neoplasm of colon?LAB: FECAL GLOBIN BY IMMUNOCHEM. (MEDICARE) Notes: Insure FIT testing agreed upon to screen for occult blood from colorectal disease. Instructed in use. Patient collection kit labeled and given to patient; questions regarding how to collect samples answered. Reminded to place date on each sample and mail back the card with completed requisition.?? 6.?Body mass index [BMI] 35. 0-35.9, adult? Notes: Engaged discussion on maintaining healthy lifestyle: healthy diet low on fats and simple carbohydrates, and regular physical exercise of at least 30 minutes daily.?? 7.?Obesity, unspecified?LAB: GLYCOHEMOGLOBIN PROFILE (Collection Date & Time - 11/10/2023 11:17 AM) ?LAB: LIPID PROFILE (Collection Date & Time - 11/10/2023 11:17 AM) ?LAB: TSH CASCADE (Collection Date & Time - 11/10/2023 11:17 AM) Notes: Engaged discussion on maintaining healthy lifestyle: healthy diet low on fats and simple carbohydrates, and regular physical exercise of at least 30 minutes daily.?? 8.?Visual discomfort, right eye? Notes: we will attempt to find a provider who will accept her limited insurance.? Referral To:Ophthalmology ?Reason:evaluate for right eye blurred vision * Procedure Codes:?80540 VENIP UNCT, ROUTINE*59518 SPECIMEN [id number] CLINIC VST/ENCOUNTER [id number] Non Billable age 40-64 * Follow Up:?2-3 weeks (Reason : lab f/u) * Images: Billing Information: * Visit Code:? * Procedure Codes:? 50681 VENIPUNCT, ROUTINE*. 28640 SPECIMEN HANDLING. T1015 CLINIC VST/ENCOUNTER ALL-INCLUSIVE. 39081 Non Billable age 40-64. Care Plan Details* * Sign off status: Completed true * Provider:?BENNY Mcconnell Date: ?11/10/2023 Generated for David koch/Joe/Gaviitting on:?06/21/2024 05:04 AM EST History and Physical Notes * Examination Category Sub-Category Detail Notes General Examination EYES: Right - no r ed eye reflex, slightly opaque NECK: supple, no JVD, no c arotid bruit HEART: normal S1 S2, no mur murs,clicks, rubs or gallops LUNGS: clear to auscultatio n bilaterally with good excursion ABDOMEN: soft, non-tender, no distention, no hepatomegaly or splenomegaly appreciated EXTREMITIES: no LE edema General Appearance Well-appearing, NAD, No obvious signs of illness, Chicken Hatchery Helper acts as microstrategy architect during visit for Moldovan speaking patient SKIN: no observed rash, le sions, cyanosis NEUROLOGIC EXAM: alert and oriented x 3 ORAL CAVITY: edentulous; full den tures BACK: full range of motion of the lumbar spine, full range of motion of the cervical spine CHEST: normal shape and exp ansion Musculoskeletal three minute musculo skeletal exam WNL LYMPH NODES: no enlargement of pr eauricular, post auricular, occipital, cervical/supraclav/axillary nodes MENTAL HEALTH Easy to engage, enga ged in OV concern today, good eye contact HEAD: Atraumatic EARS: TM visualized bilate rally NOSE: turbinates normal in appearance PHARYNX Normal without eryth kris or exudate Consultation Request Notes Referral Date Referring Provider Referred Provider Not es 11/11/2023 Harshil Palmer Phillip *evaluate for right eye blurred vision Patient has Limed [facility], ? Dr. Bergeron doing pro renny
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
--- OUTSIDE RECORDS SUMMARY | 2024-06-21 05:04 | XMS_ITS | Continuity of Care Document ---
Author Organization [facility] ter Address [address] [place] [id number] Care Team Providers Care Silk Weaver Name Role Phone Not on Staff, PCP Primary Care Physician Unavail able [place] [facility] [place] [id number] Date(s): 05/28/24 - 05/29/[address] [address]- Encounter Diagnosis Vaginal bleeding(Final) - 05/29/24 Discharge Disposition: A-D/C Home Attending Physician: Carly Martínez MD Admitting Physician: Carly Martínez MD Referring Physician: Not on Staff, Referring MD Encounter Type: Disch ES Allergies, Adverse Reactions, Alerts No Known Allergies Medications acetaminophen 325 mg oral capsule 2 capsule = 650 mg, By Mouth, Every 6 hours, PRN as needed for fever, # 90 capsule, 0 Refills, Maintenance, 05/29/24 4:02:00 AM EST, Capsule, [id number], Partial fill upon patient request if the prescription is for a schedule II opioid drug. Start Date: 05/29/24 Status: Ordered Quantity: 90.0 Unit: capsule Repeat number: 1 Results Radiology Reports * Exam Date Time Procedure Performing Provider Status 05/29/24 2:32 AM US Uterus Transvaginal Lex n Erma; Auth (Verified) Notes: (US Uterus Transvaginal) Reason For Exam: Pain RESULT: US Uterus Transvaginal US Transabd 1st Trimester Only, US Pelvic Doppler Comp, US Uterus Transvaginal Hx of Present Illness: Pt with a c o vaginal bleeding that started 10 days ago. Pt states that 2 days ago she started to have abdominal pain. starting when she woke at 0500. Pt denies sob, lightheadedness dizziness or CP. Reason: Pain; Clinical Question(s): Ectopic; Order Comment: US < 14 Week 0 Day Transabdominal SinglePrep COMPARISON: None. TECHNIQUE: Transabdominal and transvaginal pelvic ultrasound with grayscale, color Doppler, and spectral Doppler analysis. FINDINGS: Last menstrual period (LMP): 03/05/2024. Gestational age (GA) by LMP: 12 weeks. UTERUS AND GESTATIONAL STRUCTURES: No evidence of intrauterine gestational sac containing a yolk sac within the endometrial cavity. Uterus: Enlarged, heterogeneous uterus measuring 8.3 x 5.2 x 6.2 cm, volume 142.0 cc. Heterogeneously myometrial lesions measuring 1.9 x 1.6 x 1.8 the left uterine body and 2.8 x 1.7 x 2.3 cm near the left fundus likely representing uterine fibroids. Endometrial stripe: Mildly thickened measuring up to 1.7 cm. Heterogeneous endometrium with probable echogenic contents. RIGHT OVARY: Size: 3.2 x 3.1 x 3.6 cm, volume 18.3 cc. Morphology: Normal echotexture. 2.0 x 2.6 x 2.9 cm well-circumscribed anechoic simple cyst. No mass. Normal arterial and venous waveforms. LEFT OVARY: Not visualized. FREE FLUID: None. IMPRESSION: No evidence of intrauterine . Mildly thickened, heterogeneous endometrium with echogenic contents which could represent blood products or possible retained products of conception. Mildly enlarged heterogeneous uterus with myometrial lesions which likely represents uterine fibroids. Results were relayed by [employer] by Dr. Stratton to Bessie Suarez DO on 05/29/2024 2:50 AM. I have personally reviewed the images and I agree with this report. WSN: [id number] Ordering Physician: Bessie Suarez Dictated By: Thien Stratton MD Dictated Date/Time: 05/29/24 6:20 am Reviewed By: Jaki Virk MD Signed By: Jaki Virk MD Signed Date/Time: 05/29/24 6:25 am Transcribed By: SOCORRO Transcribed Date/Time: 05/29/24 3:20 am * Exam Date Time Procedure Performing Provider Status 05/29/24 2:32 AM US Pelvic Doppler Comp Erma Arriaza; Auth (Verified) Notes: (US Pelvic Doppler Comp) Reason For Exam: Pain RESULT: US Pelvic Doppler Comp US Transabd 1st Trimester Only, US Pelvic Doppler Comp, US Uterus Transvaginal Hx of Present Illness: Pt with a c o vaginal bleeding that started 10 days ago. Pt states that 2 days ago she started to have abdominal pain. starting when she woke at 0500. Pt denies sob, lightheadedness dizziness or CP. Reason: Pain; Clinical Question(s): Ectopic; Order Comment: US < 14 Week 0 Day Transabdominal SinglePrep COMPARISON: None. TECHNIQUE: Transabdominal and transvaginal pelvic ultrasound with grayscale, color Doppler, and spectral Doppler analysis. FINDINGS: Last menstrual period (LMP): 03/05/2024. Gestational age (GA) by LMP: 12 weeks. UTERUS AND GESTATIONAL STRUCTURES: No evidence of intrauterine gestational sac containing a yolk sac within the endometrial cavity. Uterus: Enlarged, heterogeneous uterus measuring 8.3 x 5.2 x 6.2 cm, volume 142.0 cc. Heterogeneously myometrial lesions measuring 1.9 x 1.6 x 1.8 the left uterine body and 2.8 x 1.7 x 2.3 cm near the left fundus likely representing uterine fibroids. Endometrial stripe: Mildly thickened measuring up to 1.7 cm. Heterogeneous endometrium with probable echogenic contents. RIGHT OVARY: Size: 3.2 x 3.1 x 3.6 cm, volume 18.3 cc. Morphology: Normal echotexture. 2.0 x 2.6 x 2.9 cm well-circumscribed anechoic simple cyst. No mass. Normal arterial and venous waveforms. LEFT OVARY: Not visualized. FREE FLUID: None. IMPRESSION: No evidence of intrauterine . Mildly thickened, heterogeneous endometrium with echogenic contents which could represent blood products or possible retained products of conception. Mildly enlarged heterogeneous uterus with myometrial lesions which likely represents uterine fibroids. Results were relayed by [employer] by Dr. Stratton to Bessie Suarez DO on 05/29/2024 2:50 AM. I have personally reviewed the images and I agree with this report. WSN: [id number] Ordering Physician: Bessie Suarez Dictated By: Thien Stratton MD Dictated Date/Time: 05/29/24 6:20 am Reviewed By: Jaki Virk MD Signed By: Jaki Virk MD Signed Date/Time: 05/29/24 6:25 am Transcribed By: SOCORRO Transcribed Date/Time: 05/29/24 3:20 am * Exam Date Time Procedure Performing Provider Status 05/29/24 2:32 AM US Transab d 1st Trimester Only Erma Arriaza; Jyoti (Verified) Notes: (US Transabd 1st Trimester Only) Reason For Exam: Pain RESULT: US Transabd 1st Trimester Only US Transabd 1st Trimester Only, US Pelvic Doppler Comp, US Uterus Transvaginal Hx of Present Illness: Pt with a c o vaginal bleeding that started 10 days ago. Pt states that 2 days ago she started to have abdominal pain. starting when she woke at 0500. Pt denies sob, lightheadedness dizziness or CP. Reason: Pain; Clinical Question(s): Ectopic; Order Comment: US < 14 Week 0 Day Transabdominal SinglePrep COMPARISON: None. TECHNIQUE: Transabdominal and transvaginal pelvic ultrasound with grayscale, color Doppler, and spectral Doppler analysis. FINDINGS: Last menstrual period (LMP): 03/05/2024. Gestational age (GA) by LMP: 12 weeks. UTERUS AND GESTATIONAL STRUCTURES: No evidence of intrauterine gestational sac containing a yolk sac within the endometrial cavity. Uterus: Enlarged, heterogeneous uterus measuring 8.3 x 5.2 x 6.2 cm, volume 142.0 cc. Heterogeneously myometrial lesions measuring 1.9 x 1.6 x 1.8 the left uterine body and 2.8 x 1.7 x 2.3 cm near the left fundus likely representing uterine fibroids. Endometrial stripe: Mildly thickened measuring up to 1.7 cm. Heterogeneous endometrium with probable echogenic contents. RIGHT OVARY: Size: 3.2 x 3.1 x 3.6 cm, volume 18.3 cc. Morphology: Normal echotexture. 2.0 x 2.6 x 2.9 cm well-circumscribed anechoic simple cyst. No mass. Normal arterial and venous waveforms. LEFT OVARY: Not visualized. FREE FLUID: None. IMPRESSION: No evidence of intrauterine . Mildly thickened, heterogeneous endometrium with echogenic contents which could represent blood products or possible retained products of conception. Mildly enlarged heterogeneous uterus with myometrial lesions which likely represents uterine fibroids. Results were relayed by [facility] by Dr. Stratton to Bessie Suarez DO on 05/29/2024 2:50 AM. I have personally reviewed the images and I agree with this report. WSN: [id number] Ordering Physician: Bessie Suarez Dictated By: Thien Stratton MD Dictated Date/Time: 05/29/24 6:20 am Reviewed By: Jaki Virk MD Signed By: Jaki Virk MD Signed Date/Time: 05/29/24 6:25 am Transcribed By: SOCORRO Transcribed Date/Time: 05/29/24 3:20 am Vital Signs Most recent to oldest [Reference Range]: 1 Oxygen Saturation [94-100 %] 100 % (05/28/24 10:04 PM) Pulse Rate [55-90 bpm] 78 bpm (05/28/24 10:04 PM) Blood Pressure [90-138/55-84 mm Hg] 119/ 57mm Hg (05/28/24 10:04 PM) Respiratory Rate [16-30 br/min] 18 br/mi n (05/28/24 10:04 PM) Temperature [96.8-100.4 DegF] 97.7 DegF (05/28/24 10:04 PM) Mode of Delivery (Oxygen) Room air (05/28/24 10:04 PM) Temperature Route Oral (05/28/24 10:04 PM) Social History Social History Type Response Smoking Status Never (less than 100 in lifetime) entered on: 09/06/21 Sex Sex Representation Female (finding) EKG study * Event Display: EKG Authored Date: Consult note * Lazaro BRUNO, [facility]: PERFORM Event Display: Consultation Note Authored Date: Patient: ??ADELAIDE ALEJO ? Age:??48 Years?Sex:??Female?:??1975?? Referring Provider Dr. Daniela DÍAZ. Chief Complaint Pt coming from home with c/o vag. bleeding x 10 days. @ days ago, pt began having abdominal pain and noticed clots. Pt denies dizziness / lightheadednes, SOB. History of Present Illness Patient is a 48 y/o Icelandic speaking patient??that presented to the ED for complains of vaginal bleeding for the last 10 days.?? She reports that the bleeding started 10-12 days ago and she thought it might have been her period because she has had irregular periods and she thought that she was approaching menopause.?? She has not stopped bleeding for the last week which is unusual for her.?? She has been wearing a pad for 12 hours and saturating it over that time span. ?? Regarding her periods she reports that her periods were previously regular but started becoming irregular since March of this year when they became more unpredictable.? She currently reports that she is not changing her pad very frequently as she is not bleeding that much currently.? OB History 12 years ago: 11 years ago: SAB (with symptoms similar to her current symptoms) ?? 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 For her ObGyn??care she was previously seen in [place] but hasn't seen anyone in recent years.?? Review of Systems Denies fever, chills, nausea, vomiting, chest pain, shortness of breath, abdominal pain, leg swelling, calf tenderness. Physical Exam Vitals & Measurements T:??97.7?F?? HR:??78??(Peripheral)?? RR:??18?? BP:??119/57?? SpO2:??100%?? Constitutional:??Normal affect, no acute distress, well-developed. Respiratory:??No increased work of breathing. Lungs clear to auscultation, breath sounds equal bilaterally without crackles or wheezing.? Cardiovascular:??Regular rate and rhythm. No murmurs, rubs, or gallops.?? Abdomen/GI:??Soft, non-tender, non-distended. No guarding or rebound tenderness.?? Gynecologic:?External Genitalia: Normal appearing without lesions or atrophic changes.?Vagina: Normal appearing with appropriate support. No lesions or discharge.?Cervix: Normal appearing. No cervical motion tenderness, lesions, or cervical discharge.??Old blood in vaginal vault (1-2 scopette)??with no active bleeding coming from cervical os.?? Bimanual Exam: ??Cervix: External cervical os dilated to 1cm, internal os closed. ??Uterus: Small, mobile, non-tender, anteverted.?Ovaries: Non-tender and without masses bilaterally.?? Extremities:??No clubbing, cyanosis or edema present.?? Skin:??No rash or jaundice. Normal for ethnicity. Neurological/Psychiatric:??Appearance appropriate, mood and affect stable. Assessment/Plan Assessment:??Patient is a 48 y/o Icelandic speaking patient??that presented to the ED for complains of vaginal bleeding for the last 10 days. Patient's serum hCG of 2310 in the ED and TVUS demonstrating heterogenous collection in her uterus with no evidence of IUP.??Labs and vitals otherwise wnl and??reassuring. ?? Discussed with??the??patient that she is most??likely??experiencing??a miscarriage??and management??options include??expectant??management??with serial hCG monitoring,??PO??Misoprostol??to facilitate??completion of??miscarriage, or??surgical management??with??manual vacuum??aspiration.??Reviewed the options: -Medical management would include mifepristone/misoprostol.??Patient may expect uterine cramping, nausea, and heavy VB.??We discussed the risk of medical management not working or retained products, and patient ultimately needing surgical management.?? -For surgical management, we discussed D&C, which would be done at a later date in the OR or procedure unit.??Risks include bleeding, infection, perforation, and retained tissue requiring furthermanagement.?? -We discussed that with expectant management, plan would be to wait and see if the passes on its own.??Patient may expect heavy bleeding and cramping similar to medical management, and ifthe bleeding became heavy enough to fill a pad in an hour for more than an hour she would need to come to [facility] for evaluation. Finally we discussed with expectant management, if she does not pass POCs by 8 weeks of diagnosis we would need to move to medical or surgical management. ?? Discussed that nothing patient did or did not do could have caused/prevented this from happening.??We discussed that approximately 50% of early pregnancies losses are due to chromosomal anomalies.??We also discussed that this is not an indication of future fertility. She does endorse a strong support system at home.? Patient decided on??expectant management. ?? Reviewed that bleeding in is never normal but not uncommon. Discussed with patient many causes for vaginal bleeding in early that may or may not be related to . We discussed that the differential diagnosis of vaginal bleeding in the first trimester includes implantation,??bleeding from cervical friability, infection, failed , and??miscarriage. We discussed that at this time it is difficult to determine the diagnosis. Reviewed return precautions, including but not limited to, heavy vaginal bleeding soaking through >1 pad per hour or severe pelvic pain not relieved with Tylenol and heating pain. All patient questions answered, patient discharged home. ?? Patient seen and discussed with??Dr. Fried??MD,??attending physician. ?? Discharge Planning:? Threatened (O20.0):??US demonstrates likely??heterogenous??blood product??at??fundus, likely??incomplete??spontaenous?? Given??this is a??desired?? and stable bleeding, recommended expectant??management Patient added to quant list. Rh+ no indication for Rhogam Tylenol for pain. ?? OB History History?(0,0,0,0)?No previous pregnancies history have been recorded Problem List/Past Medical History Ongoing No qualifying data Procedure/Surgical History No qualifying data available. Home Medications No qualifying data available. Allergies NKA Social History Alcohol Use: Never. Electronic Cigarette/Vaping Electronic Cigarette Use: Never. Substance Abuse Use: Never. Tobacco Use: Never (less than 100 in lifetime). Family History No family history recorded. * Corky BRUNO, Teri Alas: PERFORM Event Display: Consultation Note Authored Date: Attending Attestation: I have seen and evaluated this patient. I have discussed the case and its management with the resident and agree with the findings and plan as documented in the resident???s note. Quant at the cusp of visibility on ultrasound. There is a thickened endometrial lining and no concerning adnexal mass. Threatened Ab, concern for possible SAB vs early IUP. Will f/u in 2 days for another hcg outpatient. * Corky BRUNO, Teri Alas: PERFORM Event Display: Consultation Note Authored Date: Non-Bulgarian speaking patient, visit conducted with use of Icelandic audio educational sign language interpreter Note * Bessie Suarez DO: PERFORM Event Display: Patient Education Leaflets Authored Date: Possible Miscarriage (Threatened ) ?? [id number] Posible aborto espont??domitila (amenaza de aborto) Podr??a estar teniendo un aborto espont??domitila. Los signos comunes de un aborto espont??domitila son dolor y sangrado.??Algo de sangrado puede ser normal en los primeros 3??meses del embarazo. Con frecuencia, el dolor y el sangrado desaparecen y usted puede tener un embarazo y un beb?? normales.??Melissa un sangrado abundante o giovanni muy fer pueden ser las primeras se??ales de un aborto espont??domitila. Un aborto espont??domitila significa stephania p??rdidainesperada de [place] embarazo. En alcon momento, [place] proveedor de atenci??n m??dica no sabe si tiene un aborto espont??domitila o si las cosas se solucionar??n y [place] embarazo continuar?? de manera normal. Entendemos que esto es emocionalmente dif??cil. Es muy poco lo que podemos decir respecto de la forma en que se siente. Melissa debe saber que los abortos espont??neos son algo com??n. Alrededor de 1??o??2 de cada 10??embarazos terminan de alcon modo. Algunos terminan incluso antes deque usted sepa que est?? embarazada. [place] suele suceder por diferentes razones, y, por lo general, nunca se conocen las causas exactas. Es importante que sepa que no es [place] culpa. No se debe a que haya hecho algo mal. Tener relaciones sexuales o hacer actividad f??kylee no provocan un aborto espont??domitila. Estas actividades suelen ser seguras, a menos que sienta dolor o tenga sangrado, o que [place] proveedor de atenci??nm??dica le indique no hacerlas. Incluso las ca??robison leves no causan un aborto espont??domitila. Los abortos espont??neos suceden cuando las cosas no son chinmay deber??an. No hay joe??n medicamento que pueda prevenir un aborto espont??domitila. Nuevamente, debe entender que en alcon momento no se sabe con seguridad. Puede que siga teniendo algo de sangrado. Pueden ser un manchado suave o parecerse a [place] per??odo. Tambi??n puede que despida algo de tejido. Puede que tenga algunos giovanni. Por eso, es importante que reciba atenci??n de seguimiento. Cuidados en el hogar Para tener m??s probabilidades que alcon embarazo siga normalmente, debe hacer lo siguiente: ??? Descanse en la cama hasta que el dolor y el sangrado se detengan. ??? No tenga relaciones sexuales hasta que [place] proveedor de atenci??n m??dica lo autorice. ??? Use toallitas sanitarias en lugar de tampones. ??? No tome duchas vaginales. ??? No tome aspirina, ibuprofeno ni naproxeno. ??? No tome bebidas alcoh??licas ni bebidas con cafe??na.??Tampoco fume. ?? Atenci??n de seguimiento Programe stephania suzy de seguimiento con el proveedor de atenci??n m??dica para la semana pr??xima o seg??n le indiquen. Si le hicieron stephania ecograf??a, la evaluar?? un radi??logo.??Le informar??n de los nuevos resultadosque puedan afectar la atenci??n m??dica que necesita. ?? Cu??ndo llamar al?? 911 Llame al?? 911 si tiene algo de lo siguiente: ??? Dolor srinivasa y sangrado muy abundante ??? Aturdimiento o desmayos ??? Frecuencia card??luke acelerada ??? Dificultad para respirar ??? Confusi??n o problemas para despertarse ?? Cu??ndo debe buscar atenci??n m??dica Llame al proveedor de atenci??n m??dica de inmediato si se presenta cualquiera de las siguientes situaciones: ??? Sangrado vaginal o dolor michaela m??s de 3??d??as ??? Sangrado abundante. [place] significa que empapa stephania toallita sanitaria nueva por hora michaela 3??horas. ??? Fiebre de 100.4?F (38?C) o superior, o seg??n le indique el proveedor de atenci??n m??dica ??? Dolor en la parte baja del abdomen que va en aumento ??? Debilidad o mareos ??? Despide cualquier cosa que parezca tejido. Podr??a ser un material s??lido o tipo membrana de color mckinley o david??story reader. Guarde el tejido en un recipiente limpio y ll??veselo al proveedor de atenci??n m??dica. ?? Last Reviewed Date: 2022 ?? [employer]. Todos los derechos reservados. Esta informaci??n no pretende sustituir la atenci??n m??dica profesional. S??lo [place] m??dico puede diagnosticar y tratar un problema de daija. ?? * Bessie Suarez DO: PERFORM Event Display: Patient Education Leaflets Authored Date: [id number] Possible Miscarriage (Threatened ) ?? [id number] Possible Miscarriage (Threatened ) You may be having a miscarriage. Common signs of a miscarriage are pain and bleeding.??A small amount of bleeding can be normal during the first 3 months of . Often the pain and bleeding stop, and you have a normal and baby.??But heavy bleeding or severe cramping can be an early sign of miscarriage. A miscarriage means??an??unexpected loss of your . At this time, your healthcare provider doesn???t know whether you will have a miscarriage, or if things will clear up and your will continue normally. This can be emotionally difficult. There is little that can be done to change the way you feel. But??understand that miscarriages are common. About 1 or 2 out of every [address] Some even end before you know you are . This happens for a number of reasons, and usually the cause is never known. It???s important youknow that it is not your fault. It didn???t happen because you did anything wrong. Having sex or exercising does not cause a miscarriage. These activities are usually safe unless youhave pain or bleeding, or your healthcare provider tells you to stop. Even minor falls won???t cause a miscarriage. Miscarriages happen because things were not developing as they were supposed to. Nomedicine can prevent a miscarriage. Again, understand that things are uncertain right now. You may still have some bleeding. This may be light spotting or like a period, and you may pass some tissue. You may have some cramping. This iswhy follow-up care is important. Home care To improve the chance of keeping??your , you should take these steps: ??? Rest in bed until the pain and bleeding stop. ??? Don???t have sex until your healthcare provider says it???s OK. ??? Use sanitary napkins instead of tampons. ??? Don???t douche. ??? Don???t take aspirin, ibuprofen, or naproxen. ??? Don???t have alcoholic or caffeinated beverages or smoke. ?? Follow-up care Make an appointment with your healthcare provider within the next week, or as directed. If you had an ultrasound,??a radiologist??will??review??it.??You will be told of any new findings that may affect your care. ?? Call 911 Call 911 if you have: ??? Severe pain and very heavy bleeding ??? Severe lightheadedness, passing out, or fainting ??? Rapid heart rate ??? Trouble breathing ??? Confusion or trouble waking up ?? When to seek medical advice Call your healthcare provider right away??if any of the following occur: ??? Vaginal bleeding or pain that lasts for more than 3 days ??? Heavy bleeding. This means soaking 1 new pad an hour over 3 hours. ??? Fever of 100.4??F (38??C) or higher, or as directed by your healthcare provider ??? Pain in your lower belly (abdomen) that gets worse ??? Weakness or dizziness ??? Passage of anything that resembles tissue. This would be pink or grayish membrane or solid material. Save the tissue in a clean container and bring it to your healthcare provider. ?? Last Reviewed Date: 2022 ?? [id number] [employer]. All rights reserved. This information is not intended as a substitute for professional medical care. Always follow your healthcare professional's instructions. ?? Patient Care team information Care Team Personnel Name: Not on Staff, PCP Position: S Physician (General Medicine) Member Role: PCP Care Team Related Persons Name: MALENA MARTINEZ Insurance Providers Guarantor name: Health Plan Information #: 1 Payer: [employer] Member Number: [id number] Policy Number: Group Number: Health Plan Information #: 2 Payer: [employer] Member Number: [id number] Policy Number: NA Group Number: NA
--- OUTSIDE RECORDS SUMMARY | 2024-06-21 05:04 | XMS_ITS ---
Author Organization [facility] Address [address], [place] [id number] Care Team Providers Care Registered Radiation Therapist Name Role Phone No, PCP Primary Care Provider Unavailcaden raza [facility] Bibiana Unavailable [phone] Serina Mata Unavailable [phone] REASON FOR VISIT phone: lab f/u Encounters Encounter Location Date Provider Diagnosis [facility] [address] [place] [address] [facility] [place] [phone] 11/25/2023 Serina Mata Plan Of Treatment No Information Progress Notes * irving CANDELARIODOB: [birth year] (48 yo F)Acc No.[id number]:11/25/2023 Progress Notes Patient:irving OCAMPO Provider:?BENNY Mcconnell :1975???Age:48 Y???Sex:Female D ate:11/25/2023 Address:[address] [place], [place] [id number] Pcp:PCP No Subjective: * Chief Complaints: * ???1. Phone: lab f/u. * Medical History:? Objective: * Vitals:? Assessment: Plan: * Treatment: * Images: Billing Information: * Visit Code:? * Procedure Codes:? Care Plan Details* * Electronic signature of Simon Mata on 06/21/2024 at 05:04 AM EST Sign off status: Pending * Provider:?BENNY Mcconnell Date: ?11/25/2023 Generated for Loboi zee/Joe/eTransmitting on:?06/21/2024 05:04 AM EST
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
[2024-06-21 06:15] VITALS: BP 99/44; PULSE 75; RESP 14; TEMP 37.1; O2SAT 98
--- NOTE | 2024-06-21 06:46 | ED.GENADULT ---
HPI - General Adult General Chief complaint: Vaginal Bleeding Stated complaint: severe vaginal bleeding Time Seen by Provider: 06/21/24 06:39 Source: patient and ladle handler (all interactions with this patient were facilitated with an [facility] rehabilitation program manager) Mode of arrival: ambulatory Limitations: language barrier (all interactions with this patient were facilitated with an [facility] rehabilitation program manager) History of Present Illness ED Provider: Meredith Stacy PA-C HPI narrative: Patient is a 48 year old assigned female at with no reported medical history presenting to the emergency department today with vaginal bleeding and a cough. Patient states that she was seen at [facility] on 05/28/2024 for vaginal bleeding and has followed up multiple times with [facility] for this. Patient states that the bleeding was better however she coughed so hard some more blood came out of her vagina and that concerned her. Patient states that the bleeding is controlled only having to change her pad once over several hours. Patient denies any dizziness, lightheadedness, abdominal pain, nausea, vomiting, fever, chills, blurry vision, double vision, loss of vision, chest pain, difficulty breathing, shortness of breath, back pain, night sweats, pain with urination, increased urinary frequency, increased urinary urgency, blood in her stool, syncope or a near syncopal episode, recent trauma or falls, bowel incontinence, bladder incontinence, or any other complaints at this time. Relieving factors: none Exacerbating factors: none Associated symptoms: cough Treatments prior to arrival: none Related Data Previous Rx's ?Medication ?Instructions ?Recorded benzonatate 100 mg capsule 100 mg PO BID PRN cough 7 days #14 06/21/24 caps Allergies Allergy/AdvReac Type Severity Reaction Status Date / Time No Known Allergies Allergy Verified 06/20/24 23:43 Review of Systems Constitutional: Constitutional: Reports no additional constitutional complaints, Denies chills, Denies fever(s) and Denies night sweats Eyes: Eyes: Reports no additional eye complaints, Denies blurry vision, Denies change in vision, Denies diplopia, Denies eye discharge, Denies loss of vision and Denies eye pain ENT: Denies dizziness Cardiovascular: Cardiovascular: Reports no additional cardiovascular complaints, Denies chest pain, Denies lightheadedness, Denies Loss of Consciousness and Denies dyspnea Respiratory: Respiratory: Reports no additional respiratory complaints, Reports cough and Denies dyspnea Gastrointestinal: Gastrointestinal: Reports no additional gastrointestinal complaints, Denies abdominal pain, Denies melena, Denies hematochezia, Denies change in bowel habits and Denies change in stool character Genitourinary: Genitourinary: Denies urinary frequency, Denies dysuria, Denies urinary incontinence, Denies urinary hesitancy and Denies urinary urgency Comments: vaginal bleeding - minimal after excessive coughing Musculoskeletal: Musculoskeletal: Reports no additional musculoskeletal complaints, Denies numbness and Denies tingling Neurologic: Denies dizziness, Denies loss of vision, Denies numbness and Denies tingling Psychiatric: Psychiatric: Reports no additional psychiatric complaints Endocrine: Endocrine: Reports no additional endocrine complaints Hematologic/Lymphatic: Hematologic/Lymphatic: Reports no additional hematologic/lymphatic complaints Allergic/Immunologic: Allergic/Immunologic: Reports no additional allergic/immunologic complaints PMFSH Past Medical History Attestation statement: The following information was validated with the patient. Source: old records reviewed and nursing notes reviewed Social History Social History Smoked in Last 30 Days: No Use of substances other than those prescribed or required for medical reasons: No Advance Directives: No Advance Directives Information Provided: Yes Do you have a plan to hurt others: No Plan Physical Exam ED Vital Signs: Vital Signs - 24 hr 06/20/24 23:29 06/21/24 03:53 06/21/24 06:15 Temperature 98.2 F 98.4 F 98.7 F Pulse Rate 99 91 75 Respiratory Rate 20 18 14 Blood Pressure 115/76 111/55 L 99/44 L Pulse Oximetry 98 97 98 Oxygen Delivery Method Room Air Room Air Room Air 06/21/24 07:35 Temperature 98.1 F Pulse Rate 77 Respiratory Rate 16 Blood Pressure 109/79 Pulse Oximetry 98 Oxygen Delivery Method Room Air BMI result Body Mass Index 32.1 Const General: cooperative, no acute distress, alert and awake Nutritional Appearance: well nourished Orientation/consciousness: patient oriented x3 Limitations: no limitations HENMT Head: Yes normal to inspection and Yes atraumatic Ears: hearing grossly normal bilaterally and external ears normal General nose exam: Normal external nose present, no nasal discharge noted and no epistaxis Face and sinus: Yes normal facial exam, No abrasion and No laceration Mouth: Normal oral and palatal mucosa present, no drooling and no muffled voice Eyes General: appearance normal, both eyes and all related structures Periorbital: periorbital findings normal Eyelids: Yes eyelids normal Conjunctivae: conjunctivae normal Pupils: Equal, round and reactive pupils present EOM: EOMs intact bilaterally Neck Neck: Yes normal visual inspection, Yes full ROM and Yes no lymphadenopathy Chest Chest palpation & inspection: normal inspection of the chest Resp Effort & Inspection: normal respiratory effort and able to speak in complete sentences GI Inspection: Yes normal to inspection Neuro General: patient oriented x3 and moves all extremities Cranial nerves: Yes Equal, round and reactive pupils present Cognition (Neuro): normal cognition Extrem General: Yes normal to inspection, Yes full ROM and Yes capillary refill normal Psych Appearance: grossly normal Mental Status: mental status grossly normal Affect: normal affect Attitude: cooperative Thought process: Normal thought process present Thought content: Normal thought content present Insight: Good insight present (Psych) Medical Decision Making Medical Decision Making [facility] Narrative: Patient is a 48 year old assigned female at with no reported medical history presenting to the emergency department today with vaginal bleeding and a cough. Patient's physical exam was unremarkable. Patient's blood work was unremarkable. Patient's COVID-19 and RSV testing was negative. Patient's influenza testing was positive. I explained my physical exam findings as well as all test results to the patient. I answered all questions asked by the patient. I stressed the importance of the patient taking her medication as directed (either prescribed or as the over the counter packaging recommends). I stressed the importance of the patient following up with her primary care provider and an OBGYN. I stressed the importance of the patient returning to the emergency department immediately if her symptoms were to worsen or if she were to develop any dizziness, shortness of breath, difficulty breathing, chest pain, blurry vision, loss of vision, nausea, vomiting, abdominal pain, fever, chills, back pain, or any other complaints. Patient [and the patient's] verbalized agreement and understanding with this treatment plan and discharge. Differential Diagnosis Differential Diagnoses: The differential diagnosis associated with the presentation includes Vaginal bleeding Influenza COVID-19 RSV Admission/Observation Consideration of admission/observation: Escalation of care including admission/observation considered Patient would have been admitted to the hospital had her work up had any findings where hospital admission was appropriate and her clinical presentation warranted hospital admission. Lab Data [facility] Lab Attestation statement: I reviewed the patient's lab results. My interpretation of these results are in the MDM Rationale portion of this note. 06/20/24 23:59 06/20/24 23:59 Labs: Lab Results 06/20/24 Range/Units 23:59 WBC 7.0 (4.8-10.8) X10*3/uL RBC 4.23 (4.20-5.50) X10*6/uL Hgb 11.5 L (12.0-16.0) g/dl Hct 34.5 L (37.0-47.0) % MCV 81.6 (80.0-98.0) fL MCH 27.2 (27.0-33.0) pg MCHC 33.3 (31.0-35.0) g/dl RDW 13.9 (11.0-16.0) % Plt Count 296 (160-400) X10*3/uL MPV 8.6 L (9.4-12.3) fL Immature Gran % (Auto) 0.3 (0.0-0.4) % Neut % (Auto) 52.6 (45-73) % Lymph % (Auto) 33.2 (20-40) % Martin % (Auto) 10.6 (2-11) % Eos % (Auto) 3.0 (0-4) % Baso % (Auto) 0.3 (0-2) % Lymph # (Auto) 2.3 (1.2-4.9) X10*3/uL Martin # (Auto) 0.7 (0.1-1.2) X10*3/uL Eos # (Auto) 0.2 (0.0-0.4) X10*3/uL Baso # (Auto) 0.0 (0.0-0.2) X10*3/uL Abs Immat Gran (auto) 0.02 (0.00-0.03) X10*3/uL Absolute Neuts (auto) 3.7 (2.0-8.3) x10*3/uL Absolute Nucleated RBC 0.000 (0.0-0.012) X10*3/uL Nucleated RBC % (auto) 0.0 (0.0-0.2) /100WBC Sodium 139 (135-145) mmol/L Potassium 4.1 (3.3-5.1) mmol/L Chloride 107 (96-108) mmol/L Carbon Dioxide 23 (22-29) mmol/L Anion Gap 13 (12-20) BUN 14 (9-16) mg/dL Creatinine 0.71 (0.5-1.4) mg/dL Estim Creat Clear Calc 93.1 Estimated GFR > 60 Random Glucose 115 (60-115) mg/dL Calcium 8.7 (8.4-10.2) mg/dL Total Bilirubin 0.4 (0.0-1.0) mg/dL AST 40 H (5-31) U/L ALT 44 H (0-31) U/L Alkaline Phosphatase 85 (39-117) U/L Total Protein 7.1 (6.5-8.0) g/dL Albumin 4.2 (3.5-5.0) g/dL Influenza Type A (PCR) POSITIVE A (Negative) Influenza Type B (PCR) NEGATIVE (Negative) RSV RNA Qual (PCR) NEGATIVE (Negative) SARS-CoV-2 RNA (RT-PCR) NEGATIVE (Negative) Discharge Plan Discharge Clinical Impression: Influenza, Vaginal bleeding Patient Disposition: Home, Self-Care Instructions: Influenza (DC), Menorrhagia (ED) Additional Instructions: Follow up with your primary care provider and an OBGYN. Return to the emergency department immediately if your symptoms worsen or if you develop any dizziness, shortness of breath, difficulty breathing, chest pain, blurry vision, loss of vision, nausea, vomiting, abdominal pain, fever, chills, back pain, or any other complaints. Marifer un seguimiento con [place] m?dico de atenci?n primaria y un ginec?logo obstetra. Vuelva al servicio de urgencias inmediatamente si jaqcueline s?ntomas empeoran o si presenta mareos, falta de aliento, dificultad para respirar, dolor tor?cico, visi?n borrosa, p?rdida de visi?n, n?useas, v?mitos, dolor abdominal, fiebre, escalofr?os, dolor de espalda o cualquier otra molestia. Prescriptions: New benzonatate 100 mg capsule 100 mg PO BID PRN (Reason: cough) 7 Days Qty: 14 0RF Referrals: [facility] Family Medicine [Provider Group] (Call to establish and follow up with a primary care provider. If you already have a primary care provider, please follow up with them. Llame para establecer y hacer un seguimiento con un proveedor de atenci?n primaria. Si ya tiene un proveedor de atenci?n primaria, marifer un seguimiento con ?l.) [facility] Primary Care, [facility] [Provider Group] (Call to establish and follow up with a primary care provider. If you already have a primary care provider, please follow up with them. Llame para establecer y hacer un seguimiento con un proveedor de atenci?n primaria. Si ya tiene un proveedor de atenci?n primaria, marifer un seguimiento con ?l.) [facility] Primary Care,Nina [Provider Group] (Call to establish and follow up with a primary care provider. If you already have a primary care provider, please follow up with them. Llame para establecer y hacer un seguimiento con un proveedor de atenci?n primaria. Si ya tiene un proveedor de atenci?n primaria, marifer un seguimiento con ?l.) Mio Martin MD [Physician] - (Call to establish and follow up with an OBGYN. Llama para establecer y hacer un seguimiento con un ginec?logo obstetra.) Stand Alone Forms: Work/School Release Interventions: ED Discharge Assessment Last Done: 06/21/24 07:35 Discharge Date/Time: 06/21/24 07:40 Print Language: Martiniquais
[2024-06-21 07:35] VITALS: BP 109/79; PULSE 77; RESP 16; TEMP 36.7; O2SAT 98
== END 2024-06-21 07:40 | disposition home or self-care (01) ==
PROVIDERS: Emergency Provider Emergency Medicine
DX: J10.1 Influenza due to other identified influenza virus with other respiratory manifestations (principal); N93.9 Abnormal uterine and vaginal bleeding, unspecified; R05.9 Cough, unspecified; Z03.818 Encounter for observation for suspected exposure to other biological agents ruled out
CPT/HCPCS: 0241U; 80053; 85025; 99283; 99284